=== PATIENT | male | born 1965 | race Caucasian/White ===

== ENCOUNTER 2021-09-01 05:57 | Observation (INO) | payer BC ==
[2021-08-29 15:47] LABS: BASOPHILS # (AUTO) 0.1 (0.0-0.1); BASOPHILS % 1.5 % (0.0-1.0); EOSINOPHILS # (AUTO) 0.2 (0.0-0.4); EOSINOPHILS % 1.7 % (0.0-6.0); HEMATOCRIT 44.6 % (38.2-49.6); HEMOGLOBIN 14.6 g/dL (14.0-18.0); LYMPHOCYTES # (AUTO) 1.8 (1.0-3.2); LYMPHOCYTES % 19.9 % (18.0-39.1); MEAN CORPUSCULAR HEMOGLOBIN 31.5 pg (28-32); MEAN CORPUSCULAR HGB CONC 32.7 g/dL (31-35); MEAN CORPUSCULAR VOLUME 96.1 fL (81-99); MONOCYTES # (AUTO) 0.9 (0.2-0.8); MONOCYTES % 9.4 % (4.4-11.3); NEUTROPHILS # (AUTO) 6.2 (2.1-6.9); PLATELET COUNT 252 x10e3/uL (140-360); RED BLOOD COUNT 4.64 x10e6/uL (4.3-5.7); RED CELL DISTRIBUTION WIDTH 12.3 % (11.7-14.4)
[2021-08-29 15:56] LABS: INR 0.86; PROTHROMBIN TIME 12.4 seconds (11.9-14.5)
[2021-08-29 15:57] LABS: PARTIAL THROMBOPLASTIN TIME 25.2 seconds (23.8-35.5)
[2021-08-29 16:03] LABS: ANION GAP 13.1 mmol/L (8-16); CALCIUM 8.9 mg/dL (8.4-10.2); CREATININE, SERUM 1.08 mg/dL (0.72-1.25); POTASSIUM 4.1 mmol/L (3.5-5.1)
[~2021-09-01] VITALS: Ht 177.8 cm; Wt 90.7 kg
[~2021-09-01 05:57] MED LIST: ASPIRIN81 MG PO; FENOFIBRATE145 MG PO; METOPROLOL SUCC50 MG PO; PANTOPRAZOLE SO40 MG PO; RAMIPRIL5 MG PO; SIMVASTATIN40 MG PO
[2021-09-01] MEDS ORDERED: SODIUM CHLORIDE 0.9% 50ML 100 ML ONE (06:27)
[2021-09-01] MEDS ORDERED: LIDOCAINE 2%/ EPINEPHRINE 20ML MDV ONE (06:53)
[2021-09-01] MEDS ORDERED: Vancomycin IV 1 GM VIAL ONE (06:53)
[2021-09-01] MEDS ORDERED: THROMBIN FOR SOLN 5,000 UNIT VIAL ONE (06:53)
[2021-09-01] MEDS ORDERED: HYDROCODON-ACE1 EA12 PO (09:09)
[2021-09-01] MEDS ORDERED: ONDANSETRON HCL INJ 2MG/ML 2ML 2 MG/ML VIAL IV PRN (09:15)
[2021-09-01] MEDS ORDERED: ZOLPIDEM TARTRATE 5 MG TAB PO PRN (09:15)
[2021-09-01] MEDS ORDERED: MAGNESIUM/ALUMINUM/SIMETHICONE 30 ML UDC PO PRN (09:15)
[2021-09-01] MEDS ORDERED: Morphine 4mg Syringe 4 MG/ML INJ IM PRN (09:15)
[2021-09-01] MEDS ORDERED: ACETAMINOPHEN 325 MG TAB PO PRN (09:15)
[2021-09-01] MEDS ORDERED: PROMETHAZINE HCL (IM) 25 MG/ML VIAL IM PRN (09:15)
[2021-09-01] MEDS ORDERED: HYDROMORPHONE 2MG/ML 2 MG/ML ML IV PRN (09:15)
[2021-09-01] MEDS ORDERED: HYDROMORPHONE 1MG/1ML INJ ONE (09:48)
[2021-09-01 10:35] VITALS: BP 101/63
[2021-09-01 10:41] VITALS: BP 101/63
[2021-09-01] MEDS: CARISOPRODOL 350 MG TAB PO PRN ×2 (10:51→18:48)
[2021-09-01] MEDS: OXYCODONE/ACETAMINOPHEN 5-325 1 EACH TABLET PO PRN ×2 (10:52→18:48)
[2021-09-01] MEDS ORDERED: LACTATED RINGER'S 1,000 ML IV SCH (11:00)
[2021-09-01 11:05] VITALS: BP 115/84
[2021-09-01] MEDS ORDERED: ROCURONIUM BROMIDE 10 MG/ML 5ML VIAL IV ONE (12:42)
[2021-09-01] MEDS ORDERED: DEXAMETHASONE SOD PHOS INJ 4 MG/ML SDV ONE (12:42)
[2021-09-01] MEDS ORDERED: LIDOCAINE HCL 2% LOCAL INJ 5 ML SDV VIAL INJ ONE (12:42)
[2021-09-01] MEDS ORDERED: POVIDONE IODINE 0.05% 0.05 % ML PO ONE (12:42)
[2021-09-01] MEDS ORDERED: PROPOFOL IV EMULSION 10 MG/ML 20 ML VIAL ONE (12:42)
[2021-09-01] MEDS ORDERED: SEVOFLURANE INHAL SOLN 250 ML PEN BTL ONE (12:42)
[2021-09-01] MEDS ORDERED: ONDANSETRON HCL INJ 2MG/ML 2ML 2 MG/ML VIAL ONE (12:42)
[2021-09-01] MEDS ORDERED: EPHEDRINE SULFATE INJ 50 MG/ML VIAL ONE (12:42)
[2021-09-01] MEDS ORDERED: MIDAZOLAM HCL 2 MG/2 ML VIAL ONE (13:08)
[2021-09-01] MEDS ORDERED: FENTANYL CITRATE/PF 100MCG/2 ML INJ ONE (13:08)
[2021-09-01] MEDS: Cefazolin 1 GM in SODIUM CHLORIDE 0.9% 50ML 50 ML IV SCH ×2 (14:37→21:07)
[2021-09-01 16:04] VITALS: BP 121/89
[2021-09-01 20:00] VITALS: BP 118/74
[2021-09-01] MEDS ORDERED: SIMVASTATIN 40 MG TAB PO SCH (21:00)
[2021-09-01 21:30] VITALS: BP 118/74
[2021-09-01] MEDS: LACTATED RINGER'S 1,000 ML IV SCH (22:50)
[2021-09-02] VITALS: BP 124/75
[2021-09-02] MEDS: OXYCODONE/ACETAMINOPHEN 5-325 1 EACH TABLET PO PRN ×2 (03:30→08:15)
[2021-09-02 04:00] VITALS: BP 131/87
[2021-09-02] MEDS: Cefazolin 1 GM in SODIUM CHLORIDE 0.9% 50ML 50 ML IV SCH (05:13)
[2021-09-02] MEDS ORDERED: PANTOPRAZOLE SOD 40 MG TABEC PO SCH (06:00)
[2021-09-02] MEDS: LACTATED RINGER'S 1,000 ML IV SCH (07:20)
[2021-09-02 08:13] VITALS: BP 133/87
[2021-09-02 08:18] VITALS: BP 133/87
[2021-09-02] MEDS ORDERED: FENOFIBRATE 160 MG PO SCH (09:00)
[2021-09-02] MEDS ORDERED: METOPROLOL SUCCINATE 50 MG TAB XL PO SCH (09:00)
[2021-09-02] MEDS ORDERED: RAMIPRIL 5 MG CAP PO SCH (09:00)
== END 2021-09-02 09:07 | disposition home or self-care (01) ==
LOC: OR 05:57 → PACU V 09:08 → MED/SURG 10:04
PROVIDERS: ADMIT Neurological Surgery; ATTEND Neurological Surgery
DX: M48.062 Spinal stenosis, lumbar region with neurogenic claudication (principal); Z20.822 Contact with and (suspected) exposure to COVID-19; G47.33 Obstructive sleep apnea (adult) (pediatric); I25.10 Atherosclerotic heart disease of native coronary artery without angina pectoris; E78.5 Hyperlipidemia, unspecified; I10 Essential (primary) hypertension; F17.210 Nicotine dependence, cigarettes, uncomplicated; Z95.5 Presence of coronary angioplasty implant and graft; Z01.818 Encounter for other preprocedural examination
CPT/HCPCS: 36415; 63047; 63048; 71046; 72020; 80048; 85025; 85610; 85730; 86850; 86900; 88304; 88311; 93005; G0378 ×2; J0690 ×2; J1100; J1170 ×2; J2001 ×2; J2250; J2405; J2704; J3010; J3370; J7121; S0164; U0002